=== PATIENT | female | born 2000 | race Caucasian/White ===

== ENCOUNTER 2023-07-25 02:17 | Emergency (ER) | payer BC ==
[~2023-07-25] VITALS: Ht 175.3 cm; Wt 70.0 kg
[2023-07-25 02:51] VITALS: BP 114/71; PULSE 87; RESP 18; TEMP 97.8
[2023-07-25] MEDS ORDERED: LIDOCAINE 1% 10 ML VIAL ONE (03:09)
[2023-07-25] MEDS ORDERED: BACITRACIN 0.9 GM PACKET OINTMENT TP ONE (03:40)
[2023-07-25] MEDS: PERTUSS(ACELL),DIPH,TET/PF 0.5 ML SYRINGE [ADULT] IM. ONE (04:29)
== END 2023-07-25 04:43 | disposition home or self-care (01) ==
LOC: EMS 02:19
DX: S61.214A Laceration without foreign body of right ring finger without damage to nail, initial encounter (principal); S61.212A Laceration without foreign body of right middle finger without damage to nail, initial encounter; Z88.2 Allergy status to sulfonamides; X58.XXXA Exposure to other specified factors, initial encounter; Y93.89 Activity, other specified; Y92.89 Other specified places as the place of occurrence of the external cause; Y99.8 Other external cause status
CPT/HCPCS: 99283; 73140; 90715; 90471; 12001; J3490